=== PATIENT | female | born 1965 ===

== ENCOUNTER 2022-08-10 11:17 | Outpatient (CLI) | payer OTHER | END 2022-08-10 12:00 | disposition home or self-care (01) | LOC: NUCLEAR 11:17 | PROVIDERS: ATTEND Internal Medicine Endocrinology, Diabetes & Metabolism | DX: M85.89 Other specified disorders of bone density and structure, multiple sites (principal); Z13.820 Encounter for screening for osteoporosis; I73.9 Peripheral vascular disease, unspecified; E78.2 Mixed hyperlipidemia ==